=== PATIENT | male | born 1970 | race Caucasian/White ===

== ENCOUNTER → 2023-06-08 | Outpatient (CLI) | payer BC ==
[~2023-06-08] MED LIST: ASPI-1197 PO; ATOR40TA71 PO; LISI10TA24 PO; METO50TA18 PO; TICA90TA PO
== END | disposition home or self-care (01) ==
LOC: SHCH 13:18
PROVIDERS: ATTEND Internal Medicine Cardiovascular Disease
DX: R07.9 Chest pain, unspecified (principal); R06.09 Other forms of dyspnea; I10 Essential (primary) hypertension; E78.5 Hyperlipidemia, unspecified; Z98.61 Coronary angioplasty status
CPT/HCPCS: 93306